=== PATIENT | female | born 1960 | race Caucasian/White ===

== ENCOUNTER 2023-05-30 10:16 | Emergency (ER) | payer OTHER, SELFPAY ==
[2023-05-30 10:26] VITALS: BP 165/98; PULSE 89; RESP 20; TEMP 36.5; BMI 27.4
[2023-05-30 12:11] VITALS: BP 172/100; PULSE 77; O2SAT 98
--- NOTE | 2023-05-30 12:25 | ED.GENADULT ---
HPI - General Adult General Chief complaint: Extremity Pain/Injury, Lower Stated complaint: Bleeding from L leg Time Seen by Provider: 05/30/23 11:07 Source: patient Mode of arrival: ambulatory Limitations: no limitations History of Present Illness HPI narrative: 63-year-old female coming in today with bleeding from the lower extremity. Patient has a history of varicose and spider veins and she was getting a pedicure today when her leg started bleeding. She states that the health sciences department chair was exfoliating her leg with a rough exfoliator. Patient went to the clinic in the clinic sent her to the ER. She is not feeling dizzy or lightheaded. She has no other concerns. Related Data Allergies Allergy/AdvReac Type Severity Reaction Status Date / Time No Known Drug Allergies Allergy Verified 05/30/23 10:33 Review of Systems Status of ROS: Reports: 6 or more systems reviewed and unremarkable except as noted in History and below [facility] Medical History GERD (gastroesophageal reflux disease) ?K21.9 - Gastro-esophageal reflux disease without esophagitis (ICD-10) Closed right hand fracture (06/24/20) ?S62.91XA - Unspecified fracture of right wrist and hand, initial encounter for closed fracture (ICD-10) Surgical History S/P right knee arthroscopy (10/25/15) ?Z98.890 - Other specified postprocedural states (ICD-10) Social History Smoking Status: Never smoker How often do you have a drink containing alcohol: 2-3 times a week How many standard drinks containing alcohol do you have on a typical day: 3 or 4 How often do you have six or more drinks on one occasion: Never AUDIT-C Alcohol total score: 4 Non-prescribed substance use: denies use Exam Narrative: Exam Narrative: Well-nourished well-developed patient in no acute distress. Alert and oriented. Answers questions appropriately. Mood and affect are appropriate. Thoughts are goal oriented and rational. No tangential or magical thinking noted. Patient speaks in full sentences without needing to catch her breath. HEENT: Normocephalic atraumatic. Pupils are equally round reactive to light. Extraocular muscles are intact. Conjunctivae are moist without any icterus noted. Moist mucous membranes. She does not appear pale. Extremities: Patient has spider veins varicose veins throughout the lower extremities. She has a pinpoint area of excoriation over a small varicose vein that is no longer bleeding. No other abnormalities noted. She has normal DP and PT pulses. The skin is well-perfused. Const: Vital Signs, click to edit/add: Vital Signs - 24 hr 05/30/23 10:26 05/30/23 12:11 Temperature 97.7 F Pulse Rate [Pulse Oximeter] 89 77 Respiratory Rate 20 Blood Pressure [Le ft Upper Arm] 172/100 H Blood Pressure [Ri ght Upper Arm] 165/98 H Pulse Oximetry 98 Oxygen Delivery Me thod Room Air Room Air Course Vital Signs Vital signs: Initial Vital Signs Temperature 97.7 F 05/30/23 10:26 Temperature Source Temporal Artery Scan 05/30/23 10:26 Pulse Rate 89 05/30/23 10:26 Pulse Rhythm Regular 05/30/23 10:26 Respiratory Rate 20 05/30/23 10:26 Blood Pressure 165/98 H 05/30/23 10:26 Blood Pressure Mean 120 H 05/30/23 10:26 Oxygen Delivery Method Room Air 05/30/23 10:26 Vital Signs Temperature 97.7 F 05/30/23 10:26 Pulse Rate 89 05/30/23 10:26 Respiratory Rate 20 05/30/23 10:26 Blood Pressure 165/98 H 05/30/23 10:26 Oxygen Delivery Method Room Air 05/30/23 10:26 Temperature 97.7 F 05/30/23 10:26 Pulse Rate 77 05/30/23 12:11 Respiratory Rate 20 05/30/23 10:26 Blood Pressure 172/100 H 05/30/23 12:11 Pulse Oximetry 98 05/30/23 12:11 Oxygen Delivery Method Room Air 05/30/23 12:11 Medical Decision Making MDM Narrative Medical decision making narrative: Bleeding varicose vein, hemostasis achieved with pressure while in the waiting room. We will put a small amount of antibiotic ointment over the area and apply a pressure dressing. Patient encouraged to change and reapply the same the dressing daily until a nice scab forms at which time she can leave the dressing off. Return for any concerns. We discussed signs symptoms of infections. Patient had no other questions. Discharge Plan Discharge Clinical Impression: Bleeding from varicose vein Patient Disposition: Home, Self-Care Condition: Stable Additional Instructions: Change the dressing daily. Wear a snug dressing when you are working. Elevate your legs when you can. Watch for signs of infection which include redness or drainage from the small area that was bleeding. If this occurs see your doctor right away or return to the ER. Follow Up/Referrals: Karla Mcelroy DO [Primary Care Provider] - Stand Alone Forms: [employer] Info Instructions
--- NOTE | 2023-05-30 12:30 | ED.NURSE ---
Bacitracin applied to wound on pt L cartagena. Wound bandaged with telfa, gauze roll, and coban.
== END 2023-05-30 12:43 | disposition home or self-care (01) ==
PROVIDERS: Emergency Provider Family Medicine; PCP Family Medicine
DX: I83.893 Varicose veins of bilateral lower extremities with other complications (principal)
CPT/HCPCS: 99282; 99283

== ENCOUNTER 2024-07-14 07:38 | Emergency (ER) | payer OTHER, SELFPAY ==
[2024-07-14 07:51] VITALS: BP 200/124; PULSE 100; RESP 18; TEMP 37.6; O2SAT 95; BMI 28.2
--- NOTE | 2024-07-14 08:04 | ED_ITS ---
HPI - Extremity Injury (Lower) General Time Seen by Provider: 08:04 Date Seen: 07/14/24 Chief Complaint: Extremity Pain/Injury, Lower Stated Complaint: LT leg vein rupture Time Seen by Provider: 07/14/24 08:04 Source: patient, RN notes reviewed and old records reviewed Mode of arrival: ambulatory Limitations: no limitations History of Present Illness HPI Narrative: Noemy is a very pleasant 64-year-old female with a history of varicose veins, right knee pain, ibuprofen use who comes to the emergency room for bleeding from her left leg. Patient notes that she was at work at [employer] and bumped into something and then felt something wet on her lower leg. She noted that it was blood and that the back of her pants were soaked. She was not quite sure where she was bleeding from but came right to the emergency room. She is on ibuprofen but does not take aspirin or any anticoagulants. The bleeding has now stopped. A similar instance was noted in May in her chart. Patient notes that she has had right knee pain and since that time has gained approximately 15 lb. Also notes that she is taking 400 mg of ibuprofen 3 to 4 times a day. Does not feel that she is swollen or retaining fluid. Denies chest pain headache visual symptoms or confusion. Has noted that her blood pressure is elevated since the knee injury. Related Data Home Medications ?Medication ?Instructions ?Recorded ?Confirmed Advil 07/14/24 Prilosec 07/14/24 Allergies Allergy/AdvReac Type Severity Reaction Status Date / Time No Known Drug Allergies Allergy Verified 05/30/23 10:33 Review of Systems Status of ROS: Reports: 6 or more systems reviewed and unremarkable except as noted in History and below Const: Denies: fever or chills Eyes: Denies: change in vision, blurry vision or seeing flashes ENMT: Denies: neck pain Cardio: Denies: chest pain, palpitations, swelling of feet/ankles or shortness of breath with exertion Resp: Denies: shortness of breath GI: Denies: nausea Musculo: Denies: neck pain Neuro: Denies: headache PFSH PFSH Medical History GERD (gastroesophageal reflux disease) ?K21.9 - Gastro-esophageal reflux disease without esophagitis (ICD-10) Closed right hand fracture (06/24/20) ?S62.91XA - Unspecified fracture of right wrist and hand, initial encounter for closed fracture (ICD-10) Surgical History S/P right knee arthroscopy (10/25/15) ?Z98.890 - Other specified postprocedural states (ICD-10) Social History Smoking Status: Never smoker Do you use any of these nicotine containing products: None How often do you have a drink containing alcohol: 2-3 times a week How many standard drinks containing alcohol do you have on a typical day: 3 or 4 How often do you have six or more drinks on one occasion: Never AUDIT-C Alcohol total score: 4 Non-prescribed substance use: denies use Exam Narrative: Exam Narrative: Noemy is a very pleasant woman in no acute distress. Moderately anxious. External ears eyes nose clear. EOM is full. Patient mentating normally. Heart with a regular rate and rhythm. No murmur rub. Lungs are clear to auscultation. Examination of the lower extremity shows a 2 mm in diameter scab over the back of her left calf. From here there is dried blood along her leg. This appears to be the focus of initial bleeding. Hemostatic at this time. Patient has multiple varicosities spider varicosities on her leg and ankle. Const: Vital Signs, click to edit/add: Vital Signs - 24 hr 07/14/24 07:51 07/14/24 09:00 Temperature 99.7 F H Pulse Rate [Pulse Oximeter] 100 Respiratory Rate 18 Blood Pressure [Ri ght Upper Arm] 200/124 H 177/106 H Pulse Oximetry 95 Oxygen Delivery Me thod Room Air Documenting provider has reviewed patient's vital signs: yes Course Course ED Course: At this time patient's wound is hemostatic. I would apply dressing and a Bhavin wrap for support. Patient does have elevated blood pressure but upon her presentation her heart rate was in the 100s and she was very anxious. Will have patient relax here for did in continue to monitor. No red flag symptoms. Vital Signs Vital signs: Initial Vital Signs Temperature 99.7 F H 07/14/24 07:51 Temperature Source Temporal Artery Scan 07/14/24 07:51 Pulse Rate 100 09/24/24 07:51 Respiratory Rate 18 07/14/24 07:51 Blood Pressure 200/124 H 07/14/24 07:51 Blood Pressure Mean 149 H 07/14/24 07:51 Blood Pressure Position Sitting 07/14/24 07:51 Pulse Oximetry 95 07/14/24 07:51 Oxygen Delivery Method Room Air 07/14/24 07:51 Vital Signs Temperature 99.7 F H 07/14/24 07:51 Pulse Rate 100 07/14/24 07:51 Respiratory Rate 18 07/14/24 07:51 Blood Pressure 200/124 H 07/14/24 07:51 Pulse Oximetry 95 07/14/24 07:51 Oxygen Delivery Method Room Air 07/14/24 07:51 Temperature 99.7 F H 07/14/24 07:51 Pulse Rate 100 07/14/24 07:51 Respiratory Rate 18 07/14/24 07:51 Blood Pressure 177/106 H 07/14/24 09:00 Pulse Oximetry 95 07/14/24 07:51 Oxygen Delivery Method Room Air 07/14/24 07:51 MDM - Extremity Injury (Lower) MDM Narrative Medical decision making narrative: 1. Varicosity bleeding-bleeding is hemostatic at this time. While ibuprofen can be an anti-platelet I think this has more to do with the spider varicosities and fragile skin. At this time we have wrapped it with an Bhavin wrap. Will have patient off work for the next 2 days and elevate the leg so that this does not rebleed. Eventually she may need to see specialist in regards to potential cautery of these veins. 2. Hypertension-patient is asymptomatic at this time. We did have her stay and she was improved although blood pressure remained high at 170 over 106 . She has an appointment tomorrow for evaluation regarding right knee surgery. I did state that Orthopedics is unlikely to do surgery with a persistent elevated blood pressure even though she has no symptoms. I strongly recommend follow-up with her primary MD at [facility] for evaluation and blood pressure control. Also have her decrease the amount of ibuprofen she is using in a day and try to use Tylenol instead. She is agreeable to that. 3. Disposition-return to the ER for worsening symptoms. Medical Records Attestation: I reviewed the patient's medical records. Discharge Plan Discharge Clinical Impression: Bleeding from varicose vein, Hypertension Patient Disposition: Home, Self-Care Condition: Improved Additional Instructions: Substitute acetaminophen for ibuprofen doses if possible. You will need to follow-up with your primary MD for evaluation and treatment of elevated blood pressure before your surgery. You may leave this wound open to air when you are sitting a relaxing with your leg elevated. If you are working I would suggest wearing support stockings or you may wrap this wound with the Bhavin wrap until it is healed. In the future you may wish to talk to a vascular surgeon about cautery or treatment of your varicose veins Return to the emergency room as needed. Prescriptions: No Action Prilosec Advil Follow Up/Referrals: Karla Mcelroy DO [Primary Care Provider] - Stand Alone Forms: [employer] Info Instructions
--- OUTSIDE RECORDS SUMMARY | 2024-07-14 08:32 | XMS_ITS | Clinical Summary ---
Author Organization [facility] Address [place], [place] [address] Care Team Providers Care Puppy Trainer Name Role Phone Karla Mcelroy DO Primary Care Provider Allergies No known active allergies Medications Medication Sig Dispensed Refills Start Date End Date Status omega-3 fatty acids-vitamin E (FISH OIL) 1,000 mg cap Take 1 capsule by mouth 2 times daily. 0 09/19/2016 Active docusate (COLACE) 100 mg capsule Take 1 capsule by mouth 2 times daily. 0 09/20/2017 Active multivitamin (MVI) tablet Women's Day multi - no iron. 0 10/27/2018 Active cholecalciferol (VITAMIN D) 1,000 unit capsule Take 1 capsule by mouth once daily. 0 10/27/2018 Active omeprazole (PRILOSEC) 20 mg Delayed-Release capsuleIndications:Myles ritis and gastroduodenitis Take 1 capsule by mouth once daily before a meal. 90 capsule 3 10/27/2018 Active cyanocobalamin (VITAMIN B-12) 1,000 mcg tablet Take 1 tablet by mouth once daily. ODT 90 tablet 3 11/16/2020 Active Active Problems Problem Noted Date Diagnosed Date Colon polyp 05/09/2012 Overview (05/09/2012): Colonoscopy 04/2012 polyp repeat in 5 years Unspecified constipation 03/10/2012 Back pain 09/29/2011 Asymptomatic varicose veins 02/26/2011 Unspecified gastritis and ga stroduodenitis without mention of hemorrhage 02/11/2009 Overview (02/11/2009): On prilosec Resolved Problems Problem Noted Date Diagnosed Date Resolved Date Fx metatarsal 06/15/2013 06/18/2014 Immunizations Name Administration Dates Next Due Influenza A (H1N1), Inactivated 10/28/2009 Influenza, IIV3 (Age >=3 years) 07/16/2011,07/24,10/01/2003 Influenza, IIV4 08/21/2018, 7,09/19/2016,2012 Influenza, IIV4 (=>6mos) MDV 07/08/2020,08/19/20 19 Influenza, Injectable, Mdck, Quadrivalent, W/preservative 08/28/2022,07/19/2021 Influenza,LAIV4 Live Intrana levi (Flumist) 07/30/2018 Td (Age >=7 Years) 04/24/2023,03/24/2003 Tdap 02/11/2009 Family History Medical History Relation Name Comments Cancer-prostate Father Diabetes Father Heart Disease Father Hypertension Father Other Father prostate cancer Arthritis Mother Diabetes Mother Heart Disease Mother Hypertension Mother Cancer-colon Sister Cancer-breast No Family History Relation Name Status Comments Father (Age 79) prostate c ancer Mother (Age 81) heart ghulam ck Sister Social History Tobacco Use Types Packs/Day Years Used Date Smoking Tobacco: Passive Smo ke Exposure - Never Smoker Cigarettes Smokeless Tobacco: Never Tobacco Cessation:Counseling Given: Yes Comments:only [facility] Alcohol Use Standard Drinks/Week Comments Yes 12 (1 standard drink = 0.6 oz pu re alcohol) OCC. PHQ-2 Answer Date Recorded PHQ-2 TOTAL SCORE 0 03/25/2023 Social Connections Answer Date Recorded Frequency of Communication with Friends and Fami ly Not on file 03/25/2023 Financial Resource Strain Answer Date R ecorded Difficulty of Paying Living Expenses Not on file 10/17/2021 Difficulty of Paying Living Expenses Not on file 10/17/2021 Sex and Gender Information Value Date Recorded Sex Assigned at Not on file Gender Identity Not on file Sexual Orientation Not on file Obstetrics History Para Term AB IAB SAB Ectopic Multiple Livin g Live Births 5 0 0 0 5 5 0 0 0 0 Date Outcome GA Total Labor Labor/2nd/3rd Weight Sex Type Anes PTL Dorota A1 A5 Name Clin IAB IAB IAB IAB IAB Last Filed Vital Signs Vital Sign Reading Time Taken Comments Blood Pressure 195/95 03/09/2024 3:51 PM CDT Pulse 85 03/09/2024 3:51 PM CDT Temperature 36.8 ??C (98.3 ??F) 11/16/2020 8:44 AM CS T Respiratory Rate 16 03/25/2023 2:52 PM CDT Oxygen Saturation 98% 03/09/2024 3:51 PM CDT Inhaled Oxygen Concentration - - Weight 82.1 kg (181 lb) 03/09/2024 3:51 PM CDT Height 170.2 cm (5' 7) 03/25/2023 2:52 PM CDT Body Mass Index 28.35 03/25/2023 2:52 PM CDT Plan of Treatment Health Maintenance Due Date Last Done Comments HIV for age 15-65 02/13/1975 Zoster (shingles) series for age 50+ (1 of 2) 02/13/2010 Colonoscopy through age 75 05/06/2017 05/06/2012 Mammogram for age 45-75 11/16/2021 11/16/19 21, 10/27/2018, 09/20/2017, Additional history exists BMI (ht and wt on same day) for age 18+ 03/25/2024 03/25/2023, 11/16/2020, 10/27/2018, Additional history exists Depression screening for age 12+ 03/25/2024 03/25/2023, 11/16/2020, 11/16/2020, Additional history exists COVID-19 vaccine series (2023- season) 2024 08/21/2023, 08/28/2022, 10/03/2021, Additional history exists Influenza for age 50-64 06/21/2024 08/28/20 22, 07/19/2021, 07/08/2020, Additional history exists Lipids for age 45-75 11/16/2025 11/16/2020, 10/27/2018, 09/20/2017, Additional history exists Tetanus booster 04/24/2033 04/24/2023, 01/20, 03/24/2003 Tdap Completed 02/11/2009 Hepatitis C screening for age 18-79 Completed 06/18/2014 Pneumococcal series for age 6-64 Aged Out No longer eligible based on patient's age to complete this topic Procedures Procedure Name Priority Date/Time Associated Diagnosis Comments XR MAMMO BILAT SCREENING Routine 11/16/2020 10:12 AM LUNCHROOM MONITOR Visit for screening mammogram LIPID PANEL W REFLEX MEASURED LDL Routine 11/16/2020 10:02 AM LUNCHROOM MONITOR Lipid screening ANTI HCV Routine 06/18/2014 9:31 AM CDT Need for hepatitis C screening test from Last 3 Months or Most Recently Relevant to Health Maintenance Results * XR MAMMO BILAT SCREENING (11/16/2020 10:12 AM LUNCHROOM MONITOR) Anatomical Region Laterality Modality BREASTS, Breast Left, Breast Right Bilateral Mammography Impressions 11/16/2020 1:54 PM LUNCHROOM MONITOR ??There is no radiographic evidence for malignancy. ??Recommend annual mammograms. A lay language report of this examination will be provided to the patient. MAMMOGRAM ASSESSMENT: ??ACR 2 Benign Narrative 11/16/2020 1:54 PM LUNCHROOM MONITOR XR MAMMO BILAT SCREENING [[id number]] CLINICAL HISTORY: ??This is an asymptomatic 60 y.o. patient. INDICATION FOR EXAM: Mammogram Screening. TECHNIQUE: CC & MLO views were obtained. ??This digital study was evaluated with the assistance of Computer-Aided Detection. COMPARISON FILMS: Yes 10/27/18 [facility] 09/20/17 [facility] FINDINGS: ??The breasts are heterogeneously dense, which may obscure small masses. ??No suspicious masses or microcalcifications. ??Benign appearing calcifications within left breast and Intramammary lymph node within right breast. Karla Mcelroy DO MAMMO * (ABNORMAL) LIPID PANEL W REFLEX MEASURED LDL (11/16/2020 10:02 AM LUNCHROOM MONITOR) CHOLESTEROL,TOTAL 218(H) 100 - 199 mg/dL 11/16/2020 6:48 PM LUNCHROOM MONITOR [facility] TRIGLYCERIDES 69 <150 mg/dL 11/16/2020 6:48 PM LUNCHROOM MONITOR [facility] HDL CHOLESTEROL 64 >40 mg/dL 6:48 PM LUNCHROOM MONITOR [facility] NON-HDL CHOLESTEROL 154(H) <145 mg/dl 11/16/2020 6:48 PM LUNCHROOM MONITOR [facility] CHOL/HDL RATIO 3.41 <4.50 11/16/2020 6:48 PM LUNCHROOM MONITOR [facility] LDL CHOLESTEROL 140(H) <=130 mg/dL 11/16/2020 6:48 PM LUNCHROOM MONITOR [facility] PROVIDER ORDERED STATUS RANDOM 11/16/2020 6:48 PM LUNCHROOM MONITOR [facility] Blood BLOOD SPECIMEN / Unknown Venipuncture / Unknown 11/16/2020 10:02 AM LUNCHROOM MONITOR 11/16/2020 10:02 AM LUNCHROOM MONITOR Karla Mcelroy DO CHEMISTRY [facility] [address] [place] [address], [place] * ANTI HCV [[id number]] (06/18/2014 9:31 AM CDT) HEPATITIS C ANTIBODY Non-Reacti ve Non-Reacti ve 06/18/2014 5:19 PM CDT [facility] Blood specimen (specimen) BLOOD SPECIMEN / Unknown Venipuncture / Unknown 06/18/2014 9:31 AM CDT 06/18/2014 9:31 AM CDT Narrative [facility] - 06/18/2014 5:19 PM CDT Antibodies to HCV not detected; does not exclude the possibility of exposure to HCV. Melodie Alegre SEND OUTS [facility] [address] [place] [address], [place] from Last 3 Months or Most Recently Relevant to Health Maintenance Care Teams Puppy Trainer Relationship Specialty Start Date End Date Karla Mcelroy DO [address] [place] [id number] PCP - General Family Practice 09/21/15
[2024-07-14 09:00] VITALS: BP 177/106
== END 2024-07-14 09:05 | disposition home or self-care (01) ==
PROVIDERS: Emergency Provider Family Medicine; PCP Family Medicine
DX: I83.892 Varicose veins of left lower extremity with other complications (principal); I10 Essential (primary) hypertension
CPT/HCPCS: 99282; 99283

== ENCOUNTER 2024-09-22 06:37 | Day surgery (SDC) | payer OTHER, SELFPAY ==
[2024-09-22] VITALS (16 sets, daily range): BP systolic 103–170; BP diastolic 53–118; PULSE 71–96; RESP 14–16; TEMP 36.3–37.1; O2SAT 93–100; BMI 30.4
--- OUTSIDE RECORDS SUMMARY | 2024-09-22 06:41 | XMS_ITS | Clinical Summary ---
Author Organization [facility] Address [place], [place] [address] Care Team Providers Care Ocean Export Coordinator Name Role Phone Karla Mcelroy DO Primary [...] daily. ODT 90 tablet 3 11/16/2020 Active lisinopriL (PRINIVIL; ZESTRIL) 10 mg tabletIndications:HTN (hypertension) Take 1 Tablet (10 mg) by mouth once daily. 90 Tablet 3 08/19/2024 Active Active Problems Problem Noted Date Diagnosed Date Colon polyp 05/09/2012 Overview (05/09/2012): Colonoscopy 04/2012 polyp repeat in 5 years Unspecified constipation 03/10/2012 Back pain 09/29/2011 Asymptomatic varicose veins 02/26/2011 Unspecified gastritis and ga stroduodenitis without mention of hemorrhage 02/11/2009 Overview (02/11/2009): On prilosec Resolved Problems Problem Noted Date Diagnosed Date Resolved Date Fx metatarsal 06/15/2013 06/18/2014 Encounters Date Type Department Care Team Description 09/14/2024 Orders Only [address] [address] Karla Mcelroy DO 1 scan: (1-Ord) NFLD-EKG-09/09/24 09/09/2024 9:50 AM MACHINE ENGINEER Office Visit [address] [address] Karla Mcelroy DO Preoperative Exam (total right knee 09/22/24) 09/09/2024 Travel 09/03/[address] [address] Karla Mcelroy DO Letter 08/20/[address] [address] Karla Mcelroy DO Results 08/19/2024 3:05 PM CDT Office Visit [address] [address] Karla Mcelroy DO Blood Pressure; Varicose Veins (left leg- follow up on vein rupture ) 08/19/2024 Travel 08/18/[address] [address] Karla Mcelroy DO Appointment Request (Change 08/19/24 appointment time- needs appt after 3pm) 07/21/[address] [address] Karla Mcelroy DO Appointment Request ([facility] ) from Last 3 Months Immunizations Name Administration Dates Next Due Influenza A (H1N1), Inactivated 10/28/2009 Influenza, IIV3 (Age >=3 years) 07/16/2011,07/24,10/01/2003 Influenza, IIV4 08/21/2018, 7,09/19/2016,2012 Influenza, IIV4 (=>6mos) MDV 07/08/2020,08/19/20 19 Influenza, Injectable, Mdck, Quadrivalent, W/preservative 08/21/2023,08/28/2022,07/19/2021 Influenza,LAIV4 Live Intrana levi (Flumist) 07/30/2018 Td [...] 0 03/25/2023 Social Connections Answer Date Recorded Do you often feel lonely or isolated from those around you? 0 08/19/2024 Financial Resource Strain Answer Date R ecorded Difficulty of Paying Living Expenses 3 08/19/2024 Difficulty of Paying Living Expenses Not on file 08/19/2024 Food Insecurity Answer Date Recorded Do you worry your food will run out before you are able to buy more? 1 08/19/2024 Transportation Needs Answer Date Record ed Does lack of transportation keep you from medica l appointments? 1 08/19/2024 Does lack of transportation keep you from work, meetings or getting things that you need? 1 08/19/2024 Housing Stability Answer Date Recorded What is your housing situation today? 1 08/19/2024 Sex and Gender Information Value Date Recorded [...] Sign Reading Time Taken Comments Blood Pressure 169/98 09/09/2024 9:52 AM MACHINE ENGINEER Pulse 72 09/09/2024 9:52 AM MACHINE ENGINEER Temperature 36.5 C (97.7 F) 09/09/2024 9:52 AM MACHINE ENGINEER Respiratory Rate 16 03/25/2023 2:52 PM CDT Oxygen Saturation 100% 09/09/2024 9:52 AM MACHINE ENGINEER Inhaled Oxygen Concentration - - Weight 83.1 kg (183 lb 3.2 oz) 09/09/2024 9:52 A M MACHINE ENGINEER Height 165.5 cm (5' 5.16) 09/09/2024 9:52 AM CS T Body Mass Index 30.34 09/09/2024 9:52 AM MACHINE ENGINEER Plan of Treatment Health Maintenance Due Date Last Done Comments HIV for age 15-65 02/13/1975 Zoster (shingles) series for age 50+ (1 of 2) 02/13/2010 Colonoscopy through age 75 05/06/2017 05/06/2012 Mammogram for age 45-75 11/16/2021 11/16/19 21, 10/27/2018, 09/20/2017, Additional history exists Depression screening for age 12+ 03/25/2024 03/25/2023, 11/16/2020, 11/16/2020, Additional history exists COVID-19 vaccine series ( season) 2024 08/21/2023, 08/28/2022, 10/03/2021, Additional history exists Influenza for age 50-64 06/21/2024 08/21/20 23, 08/28/2022, 07/19/2021, Additional history exists BMI (ht and wt on same day) for age 18+ 09/09/2025 09/09/2024, 03/25/2023, 11/16/2020, Additional history exists Lipids for age 45-75 11/16/2025 11/16/2020, 10/27/2018, 09/20/2017, Additional history exists Tetanus booster 04/24/2033 04/24/2023, 01/20, 03/24/2003 Tdap Completed 02/11/2009 Hepatitis C screening for age 18-79 Completed 06/18/2014 Pneumococcal series for age 6-64 Aged Out No longer eligible based on patient's age to complete this topic Procedures Procedure Name Priority Date/Time Associated Diagnosis Comments EKG 12 LEAD Routine 09/14/2024 8:34 AM MACHINE ENGINEER Pre-op exam DC READING EKG - NO CHARGE, COMP ONLY Routine 09/14/2024 8:33 AM MACHINE ENGINEER Pre-op exam CBC WITH AUTO DIFFERENTIAL Routine 09/09/2024 10:58 AM MACHINE ENGINEER Pre-op exam UA W/ SEDIMENT EXAM REFLEXED PER CRITERIA Routine 09/09/2024 10:58 AM MACHINE ENGINEER Pre-op exam BASIC METABOLIC PANEL Routine 08/19/2024 4:08 PM CDT HTN (hypertension) XR MAMMO BILAT SCREENING Routine 11/16/2020 10:12 AM MACHINE ENGINEER Visit for screening mammogram LIPID PANEL W REFLEX MEASURED LDL Routine 11/16/2020 10:02 AM MACHINE ENGINEER Lipid screening ANTI HCV Routine 06/18/2014 9:31 AM CDT Need for hepatitis C screening test from Last 3 Months or Most Recently Relevant to Health Maintenance Results * EKG 12 LEAD (09/14/2024 8:34 AM MACHINE ENGINEER) Karla Christina Detert DO EKG ORD * DC READING EKG - NO CHARGE, COMP ONLY (09/14/2024 8:33 AM MACHINE ENGINEER) Karla Christina Detert DO PB - PROVIDER READI NGS * UA W/ SEDIMENT EXAM REFLEXED PER CRITERIA (09/09/2024 10:58 AM MACHINE ENGINEER) COLOR YELLOW YELLOW [facility] APPEARANCE CLEAR CLEAR [facility] SPECIFIC GRAVITY 1.007 1.001 - 1.035 [facility] PH 6.0 5.0 - 8.0 [facility] GLUCOSE NEGATIVE NEGATIVE [facility] BILIRUBIN NEGATIVE NEGATIVE [facility] KETONES NEGATIVE NEGATIVE [facility] OCCULT BLOOD NEGATIVE NEGATIVE [facility] PROTEIN NEGATIVE NEGATIVE [facility] NITRITE NEGATIVE NEGATIVE [facility] LEUKOCYTE ESTERASE NEGATIVE NEGATIVE [facility] Urine URINE SPECIMEN / Unknown 09/09/2024 10:58 AM MACHINE ENGINEER 09/09/2024 10:58 AM MACHINE ENGINEER Karla Mcelroy DO URINE [facility] [address] [place] [address], [facility] [address] [place] [address] * (ABNORMAL) CBC AND DIFFERENTIAL (09/09/2024 10:58 AM MACHINE ENGINEER) Pathologist [facility] WHITE BLOOD CELL COUNT 5.3 3.8 - 10.8 Thousand/u L [facility] RED BLOOD CELL COUNT 4.14 3.80 - 5.10 Million/uL [facility] HEMOGLOBIN 13.9 11.7 - 15.5 g/dL [facility] HEMATOCRIT 41.2 35.0 - 45.0 % [facility] MCV 99.5 80.0 - 100.0 fL [facility] MCH 33.6(H) 27.0 - 33.0 pg [facility] MCHC 33.7 32.0 - 36.0 g/dL [facility] Comment: For adults, a slight decrease in the calculated MCHC value (in the range of 30 to 32 g/dL) is most likely not clinically significant; however, it should be interpreted with caution in correlation with other red cell parameters and the patient's clinical condition. RDW 12.3 11.0 - 15.0 % [facility] PLATELET COUNT 308 140 - 400 Thousand/u L [facility] MPV 9.8 7.5 - 12.5 fL [facility] ABSOLUTE NEUTROPHILS 2,671 1,500 - 7,800 cells/uL [facility] ABSOLUTE LYMPHOCYTES 2,062 850 - 3,900 cells/uL [facility] ABSOLUTE MONOCYTES 461 200 - 950 cells/uL [facility] ABSOLUTE EOSINOPHILS 58 15 - 500 cells/uL [facility] ABSOLUTE BASOPHILS 48 0 - 200 cells/uL [facility] NEUTROPHILS 50.4 % [facility] LYMPHOCYTES 38.9 % [facility] MONOCYTES 8.7 % [facility] EOSINOPHILS 1.1 % [facility] BASOPHILS 0.9 % [facility] Blood BLOOD SPECIMEN / Unknown 09/09/2024 10:58 AM MACHINE ENGINEER 09/09/2024 10:58 AM MACHINE ENGINEER Karla Mcelroy DO HEMATOLOGY [employer] [facility] [address] [place] [address], [facility] [address] [place] [address] * BASIC METABOLIC PANEL (08/19/2024 4:08 PM CDT) [facility] GLUCOSE 94 65 - 99 mg/dL [facility] Comment: Fasting reference interval UREA NITROGEN (BUN) 15 7 - 25 mg/dL [facility] CREATININE 0.72 0.50 - 1.05 mg/dL [facility] EGFR 93 > OR = 60 mL/min/1. 73m2 [facility] BUN/CREATININE RATIO SEE NOTE: 6 - (calc) [facility] Comment: Not Reported: BUN and Creatinine are within reference range. SODIUM 138 135 - 146 mmol/L [facility] POTASSIUM 4.1 3.5 - 5.3 mmol/L [facility] CHLORIDE 101 98 - 110 mmol/L [facility] CARBON DIOXIDE 26 20 - 32 mmol/L [facility] ELECTROLYTE BALANCE 11 7 - 17 mmol/L (calc) [facility] CALCIUM 9.6 8.6 - 10.4 mg/dL [facility] Blood BLOOD SPECIMEN / Unknown 08/19/2024 4:08 PM CDT 08/19/2024 4:08 PM CDT Karla Teaguet DO CHEMISTRY [employer] [facility] [address] [place] [address], [facility] [address] [place] [address] * XR MAMMO BILAT SCREENING (11/16/2020 10:12 AM MACHINE ENGINEER) Anatomical Region Laterality Modality BREASTS, Breast Left, Breast Right Bilateral Mammography Impressions 11/16/2020 1:54 PM MACHINE ENGINEER There is no radiographic evidence for malignancy. Recommend annual mammograms. A lay language report of this examination will be provided to the patient. MAMMOGRAM ASSESSMENT: ACR 2 Benign Narrative 11/16/2020 1:54 PM MACHINE ENGINEER XR MAMMO BILAT SCREENING [[id number]] CLINICAL HISTORY: This is an asymptomatic 60 y.o. patient. INDICATION FOR EXAM: Mammogram Screening. TECHNIQUE: CC & MLO views were obtained. This digital study was evaluated with the assistance of Computer-Aided Detection. COMPARISON FILMS: Yes 10/27/18 [facility] 09/20/17 [facility] FINDINGS: The breasts are heterogeneously dense, which may obscure small masses. No suspicious masses or microcalcifications. Benign appearing calcifications within left breast and Intramammary lymph node within right breast. Karla Vasquez Detert DO MAMMO * (ABNORMAL) LIPID PANEL W REFLEX MEASURED LDL (11/16/2020 10:02 AM MACHINE ENGINEER) CHOLESTEROL,TOTAL 218(H) 100 - 199 mg/dL 11/16/2020 6:48 PM MACHINE ENGINEER [facility] TRIGLYCERIDES 69 <150 mg/dL 11/16/2020 6:48 PM MACHINE ENGINEER [facility] HDL CHOLESTEROL 64 >40 mg/dL 6:48 PM MACHINE ENGINEER [facility] NON-HDL CHOLESTEROL 154(H) <145 mg/dl 11/16/2020 6:48 PM MACHINE ENGINEER [facility] CHOL/HDL RATIO 3.41 <4.50 11/16/2020 6:48 PM MACHINE ENGINEER [facility] LDL CHOLESTEROL 140(H) <=130 mg/dL 11/16/2020 6:48 PM MACHINE ENGINEER [facility] PROVIDER ORDERED STATUS RANDOM 11/16/2020 6:48 PM MACHINE ENGINEER [facility] Blood BLOOD SPECIMEN / Unknown Venipuncture / Unknown 11/16/2020 10:02 AM MACHINE ENGINEER 11/16/2020 10:02 AM MACHINE ENGINEER Karla Mcelroy DO CHEMISTRY [facility] [address] [place] [address], * ANTI HCV [11831.2] (06/18/2014 9:31 AM CDT) HEPATITIS C ANTIBODY Non-Reacti ve Non-Reacti ve 06/18/2014 5:19 PM CDT [facility] Blood specimen (specimen) BLOOD SPECIMEN / Unknown Venipuncture / Unknown 06/18/2014 9:31 AM CDT 06/18/2014 9:31 AM CDT Narrative [facility] - 06/18/2014 5:19 PM CDT Antibodies to HCV not detected; does not exclude the possibility of exposure to HCV. Melodie Alegre SEND OUTS [facility] [address] [place] [address], from Last 3 Months or Most Recently Relevant to Health Maintenance Care Teams [employer] Coordinator Relationship Specialty Start Date End Date Karla Mcelroy DO [address] [place] [address] PCP - General Family Practice 09/21/15
[2024-09-22] MEDS: OXYCODONE (CR) 10 MG TAB.ER.12H PO (07:20)
[2024-09-22] MEDS: CELECOXIB 200 MG CAPSULE PO (07:20)
[2024-09-22] MEDS: ACETAMINOPHEN 500 MG TABLET 1000 MG PO ×2 (07:20→13:35)
[2024-09-22] MEDS: LACTATED RINGERS 1000 ML 1,000 ML 100 ML IV (07:45)
[2024-09-22] MEDS: SODIUM CHLORIDE 0.9 % (FLUSH) 10 ML SYRINGE IVF (07:45)
--- NOTE | 2024-09-22 08:40 | SUR.PREOP ---
TIME?OUT:?0840 PT/RN/MDA?VERIFICATION?OF?SURGICAL?SITE,?PROCEDURE,?AND?CONSENT OBTAINED?PRIOR?TO?INVASIVE?PROCEDURE.
[2024-09-22] MEDS: fentaNYL 100 MCG/2 ML inj IVP (08:41)
[2024-09-22] MEDS: MIDAZOLAM HCL 1 MG/ML inj IVP (08:41)
[2024-09-22] MEDS: CEFAZOLIN 2 GM INJ IVP (09:12)
[2024-09-22] MEDS: TRANEXAMIC ACID 100 MG/ML INJ 1000 MG IV (09:14)
--- NOTE | 2024-09-22 09:16 | W.ANESCHARGE ---
Anesthesia Charges Start Date/Time Anesthesia Start Date: 09/22/24 Anesthesia Start Time: 08:55 Stop Date/Time Anesthesia Stop Date: 09/22/24 Anesthesia Stop Time: 11:14
--- NOTE | 2024-09-22 09:17 | W.PM.NB ---
Nerve Block Nerve Block Time Seen by Provider: 08:45 Date Seen: 09/22/24 Type of block requested by surgeon for post-operative analgesia: adductor canal Side: right Time out performed: Yes Verification of patient name: Yes Verification of date of : Yes Site marking: site marked Name of person performing procedure: Peña Continuous monitoring Was continuous monitoring of O2 sat, B/P, ethics instructor, recorded every 15 minutes?: Yes Procedure Checklist: sterile prep, needles and gloves Ultrasound guided. Images saved: Yes Medications given in 5ml increments after negative aspiration: Marcaine %: 0.25 mL: 15 Needle gauge: 20 Precedex (mcg): 25 Patient tolerated procedure well: Yes Block Charges Block Charge (with Pro Fee): Femoral Nerve Use of Ultrasound Machine for Block: Yes- US Guidance/pain block
--- NOTE | 2024-09-22 09:17 | W.PM.NB ---
Nerve Block Nerve Block Time Seen by Provider: 08:45 Date Seen: 09/22/24 Type of block requested by surgeon for post-operative analgesia: geniculars Side: right Time out performed: Yes Verification of patient name: Yes Verification of date of : Yes Site marking: site marked Name of person performing procedure: Peña Continuous monitoring Was continuous monitoring of O2 sat, B/P, cardiac rehabilitation program director, recorded every 15 minutes?: Yes Procedure Checklist: sterile prep, needles and gloves Ultrasound guided. Images saved: Yes Medications given in 5ml increments after negative aspiration: Marcaine %: 0.25 mL: 9 Needle gauge: 25 Patient tolerated procedure well: Yes Block Charges Block Charge (with Pro Fee): Genicular Nerve Block
--- NOTE | 2024-09-22 10:45 | PM.ORPRC ---
Procedure Note Date of procedure: 09/22/24 Procedure: PREOPERATIVE DIAGNOSIS: Right knee osteoarthritis POSTOPERATIVE DIAGNOSIS: Right knee osteoarthritis NAME OF OPERATION: Right total knee arthroplasty SURGEON: Felix Kapadia MD COLOR CHECKER ROVING OR YARN: NALLELY Yang ANESTHESIA: Spinal ESTIMATED BLOOD LOSS: 0 mL COMPLICATIONS: None SPECIMENS: None DRAINS: None PREOPERATIVE ANTIBIOTICS: Ancef 2 grams IMPLANTS: 1. J&J Attune revision CRS #6 posterior stabilized femur, 14 mm x 50 mm cemented stem 2. # 5 revision CRS fixed-bearing tibia, 14 mm x 50 mm cemented stem 3. #6 posterior stabilized, 6 mm constrained, fixed-bearing polyethylene 4. 35 patella INDICATIONS: The patient is a 64-year-old with a longstanding history of severe, unrelenting right knee pain and instability secondary to end-stage (grade IV) right knee osteoarthritis. Despite appropriate nonoperative management, including activity modification, anti-inflammatories, [id number]-[id number] pain medication, bracing, physical therapy, and injections they continue to have pain and disability. Operative intervention was offered. The risks, benefits and expected outcomes were discussed in detail. These included but were not limited to: Infection, bleeding, injury to blood vessel or nerve, venous thromboembolism. All questions were answered to their satisfaction. Use of an certified nursing assistant instructor was necessary throughout the case for patient positioning and safety, soft tissue retraction, and closure. A modifier 22 should be added to this case. Given the patient's valgus deformity stemmed and constrained components were used. This added time and cost to complete the case. PROCEDURE: Spinal anesthesia was administered. The patient was placed supine on the operating table. The certified nursing assistant instructor made sure the patient was positioned appropriately. The lower extremity was prepped and draped in the usual sterile fashion. The limb was exsanguinated with the [place] bandage. The pneumatic tourniquet was inflated to 300 mmHg. A standard anterior incision was made with the knee in flexion. Subcutaneous dissection was sharply taken through fascial layer #1. Full-thickness medial and lateral flaps were elevated. The certified nursing assistant instructor retracted the soft tissues and protected them throughout the case. A standard subvastus approach was made. The patella was subluxed. The infrapatellar fat pad was debrided. The menisci and cruciate ligaments were sharply d?brided. Marginal osteophytes were d?brided with the rongeur. The drill was used to penetrate the femoral canal. The canal was aspirated and irrigated with pulse lavage. The intramedullary femoral guide was placed for a 5-degree valgus cut, removing 12 mm off the distal femur. The saw was used to make the cut. Given the amount of valgus malalignment, stemmed and constrained components were planned. Attention was then turned to the proximal tibia. The extramedullary tibial guide was placed for a neutral varus/valgus cut with 7 degrees of posterior slope, removing 2 mm based off the medial tibial surface. The certified nursing assistant instructor protected the collateral ligaments and the neurovascular bundle. The saw was used to make the cut. The dog bone was placed to check our extension gap. We were able to get the knee into full extension. We returned our attention to the femoral prep. Whitesides line and the trans epicondylar axis were marked. The femoral sizing guide was pinned onto the distal femur. Three degrees of external rotation nicely parallels the transepicondylar axis. Pins were placed for posterior referencing. The four-in-one cutting guide was pinned onto the distal femur. The anterior, posterior, and chamfer cuts were made. The certified nursing assistant instructor protected the collateral ligaments. The revision trial was placed. The box cuts were made. The drill was used x2. The stemmed, boxed trial was placed and was an excellent fit. Trial components were placed. The knee was nicely balanced in both flexion and extension. The trial components were removed. The tray was placed in appropriate rotation, parallel to our tibial cutting pins. It was pinned by the certified nursing assistant instructor and the drill x2 was used. The stemmed tibial trial was placed. The punch was used. The tray was removed. The punch was used again. Attention was then turned to the patella. [place] patellar thickness was 20.5 mm. The lobster claw resection guide was used with the 7.5 mm tenzin. The saw was used to make the cut. Drill holes were made by the certified nursing assistant instructor. The trial was placed and was an excellent fit. Cancellous surfaces were irrigated with pulse lavage and thoroughly dried by the certified nursing assistant instructor. We cemented the tibial component, then the femoral component. We impacted the 6 mm polyethylene onto the tibial tray. The knee was brought into full extension. We then cemented the patellar component. Excessive cement was removed. The cement was allowed to harden. The knee was taken through a range of motion and was found to be nicely balanced in both flexion and extension. The patella tracks centrally. The certified nursing assistant instructor did a three minute dilute Betadine solution soak. The certified nursing assistant instructor irrigated the wound with 3 liters of normal saline via pulse lavage. The certified nursing assistant instructor reapproximated the extensor mechanism with #1 Vicryl in an interrupted rbhoyb-ye-irvhq fashion. The certified nursing assistant instructor then ran the extensor mechanism with a #1 PDO Stratafix. The certified nursing assistant instructor closed the subcutaneous tissues with a 3-0 Stratafix and the skin with a running 3-0 Stratafix in a subcuticular fashion. Glue was used to seal the skin. The certified nursing assistant instructor placed a dry dressing. Sponge and needle counts were correct x2. The patient tolerated the procedure well. There were no apparent complications. They were carefully transferred to the hospital bed and taken to the postanesthesia care unit in satisfactory condition. PLAN: The patient will be mobilized with physical therapy. Aspirin will be used for DVT prophylaxis. They will be discharged to home once medically appropriate.
--- NOTE | 2024-09-22 11:15 | CRLHL7_ITS ---
For Patients: As a result of the Cures Act, medical imaging exams and procedure reports are released immediately into your electronic medical record. You may view this report before your referring provider. If you have questions, please contact your health care provider. Indication: Postop total right knee Technique: Two views right knee Findings/Impression: Hardware from a right total knee arthroplasty is in satisfactory position. Bone alignment is normal. No sign of acute fracture. Postop changes are within normal limits. Dictated by Yariel Feliciano MD @ 09/23/2024 8:35:46 AM (Electronically Signed)
--- NOTE | 2024-09-22 11:16 | W.ANESCHARGE ---
Anesthesia Charges Start Date/Time Anesthesia Start Date: 09/22/24 Anesthesia Start Time: 08:55 Stop Date/Time Anesthesia Stop Date: 09/22/24 Anesthesia Stop Time: 11:14
[2024-09-22] MEDS: OXYCODONE 5 MG TABLET PO ×2 (13:05→14:40)
--- NOTE | 2024-09-22 14:03 | SUR.PHASEII ---
Patient to PT at 1400.
--- NOTE | 2024-09-22 16:00 | SUR.PHASEII ---
Patient passed PT and returned to [facility]. Patient attempted to void at 1445 unsuccessfully. Patient drank more pedialyte, water, diet coke, and successfully voided at 1545. Patient verbalized readiness to be discharge and understanding of discharge instructions that she had gone over with first phase II RN.
== END 2024-09-22 16:02 | disposition home or self-care (01) ==
LOC: OR 06:39
PROVIDERS: PCP Family Medicine; Visit Provider Orthopaedic Surgery
PROC: (CPT 27447; principal; 2024-09-22 08:45)
DX: M17.11 Unilateral primary osteoarthritis, right knee (principal); M21.061 Valgus deformity, not elsewhere classified, right knee; G89.18 Other acute postprocedural pain
CPT/HCPCS: 27447; 01402; 64447; 64454; 73560; 76942; 97110; 97116; 97161; 97530; A9270; C1776; J0665; J0690; J2250; J2371; J2405; J2704; J3010; J3490; J7120

== ENCOUNTER 2024-12-02 08:05 | Emergency (ER) | payer BC, SELFPAY ==
[2024-12-02] VITALS (22 sets, daily range): BP systolic 157–200; BP diastolic 87–110; PULSE 72–91; RESP 16–18; TEMP 36.6; O2SAT 92–99; BMI 29.1
--- OUTSIDE RECORDS SUMMARY | 2024-12-02 08:06 | XMS_ITS | Clinical Summary ---
Author Organization [employer] [facility] [employer] Address [place], [place] [address] Care Team Providers Care Direct Sales Consultant Name Role Phone Karla Mcelroy DO Primary Care Provider [phone] Allergies No known active allergies Medications omega-3 fatty acids-vitamin E (FISH OIL) 1,000 mg cap Take 1 capsule by mouth 2 times daily. 0 6 Active docusate (COLACE) 100 mg capsule Take 1 capsule by mouth 2 times daily. 0 7 Active multivitamin (MVI) tablet Women's Day multi - no iron. 0 9 Active cholecalciferol (VITAMIN D) 1,000 unit capsule Take 1 capsule by mouth once daily. 0 9 Active omeprazole (PRILOSEC) 20 mg Delayed-Release capsuleIndications:G astritis and gastroduodenitis Take 1 capsule by mouth once daily before a meal. 90 capsule 3 9 Active cyanocobalamin (VITAMIN B-12) 1,000 mcg tablet Take 1 tablet by mouth once daily. ODT 90 tablet 3 1 Active lisinopriL (PRINIVIL; ZESTRIL) 10 mg tabletIndications:HT N (hypertension) Take 1 Tablet (10 mg) by mouth once daily. 90 Tablet 3 4 Active Active Problems Problem Noted Date Diagnosed [...] Encounters Date Type Department Care Team Description 11/26/2024 2:50 PM COMPLIANCE REVIEWER Office Visit [facility] [address] [place] [address] Soledad Pineda, Headache (headaches ongoing for about 2 weeks, not sleeping well, Tylenol has not been helpful. ) 11/26/2024 Travel 11/26/2024 Nurse Triage [facility] [address] [place] [address] Karla Mcelroy, Headache 11/17/2024 Nurse Triage [facility] [address] [place] [address] Karla Mcelroy DO Headache 11/13/2024 Nurse Triage [facility] [address] [place] [address] Karla Mcelroy, Headache 09/22/2024 Orders Only [facility] Scanner 1 scan: (1-Ord) RUBI CHEN KNEE RT 2V, 09/22/2024 09/14/2024 Orders Only [address] [address] Karla Mcelroy DO 1 scan: (1-Ord) NFLD-EKG-09/09/24 09/09/2024 9:50 AM COMPLIANCE REVIEWER Office Visit [facility] [address] [place] [address] Karla Mcelroy DO Preoperative Exam (total right knee 09/22/24) 09/09/2024 Travel 09/03/2024 Telephone [facility] [address] [place] [address] Karla Mcelroy DO Letter from Last 3 Months Immunizations Name Administration [...] is your housing situation today? 1 08/19/2024 Utilities Answer Date Recorded Do you have trouble paying f or utilities (for example, heat, electricity, water, phone)? 1 08/19/2024 Comments No Sex and Gender Information Value Date Recorded Sex Assigned at Not on file Legal Sex Female 5:24 AM COMPLIANCE REVIEWER Gender Identity Not on file Sexual Orientation Not on file Occupation Industry Job Start Date Job End Date [employer] Not on file Not on file Not on file Obstetrics History Para Term AB IAB SAB Ectopic Multiple Livin g Live Births 5 0 0 0 5 5 0 0 0 0 Date Outcome GA Total Labor Labor/2nd/3rd Weight Sex Type Anes PTL Dorota A1 A5 Name Clin IAB IAB IAB IAB IAB Last Filed Vital Signs Vital Sign Reading Time Taken Comments Blood Pressure 158/98 11/26/2024 2:51 PM COMPLIANCE REVIEWER Pulse 70 11/26/2024 2:51 PM COMPLIANCE REVIEWER Temperature 36.9 C (98.5 F) 11/26/2024 2:51 PM COMPLIANCE REVIEWER Respiratory Rate 16 03/25/2023 2:52 PM CDT Oxygen Saturation 99% 11/26/2024 2:51 PM COMPLIANCE REVIEWER Inhaled Oxygen Concentration - - Weight 83.1 kg (183 lb 3.2 oz) 09/09/2024 9:52 A M COMPLIANCE REVIEWER Height 165.5 cm (5' 5.16) 09/09/2024 9:52 AM CS T Body Mass Index 30.34 09/09/2024 9:52 AM COMPLIANCE REVIEWER Plan of Treatment Health Maintenance Due Date Last Done Comments HIV for age 15-65 02/13/1975 Pneumococcal series for age 50+ (1 of 1 - PCV) 02/13/2010 Zoster (shingles) series for age 50+ (1 of 2) 02/13/2010 Colonoscopy through age 75 05/06/2017 05/06/2012 RSV vaccine for adults or (1 - Risk 60-74 years 1-dose series) 2020 Mammogram for age 45-75 11/16/2021 11/16/19 21, [...] Tdap Completed 02/11/2009 Hepatitis C screening for ag e 18-79 Completed 06/18/2014 Procedures Procedure Name Priority Date/Time Associated Diagnosis Comments SCAN-RADIOLOGY REPORT 09/22/2024 12:00 AM COMPLIANCE REVIEWER EKG 12 LEAD Routine 09/14/2024 8:34 AM COMPLIANCE REVIEWER Pre-op exam MD READING EKG - NO CHARGE, COMP ONLY Routine 09/14/2024 8:33 AM COMPLIANCE REVIEWER Pre-op exam CBC WITH AUTO DIFFERENTIAL Routine 09/09/2024 10:58 AM COMPLIANCE REVIEWER Pre-op exam UA W/ SEDIMENT EXAM REFLEXED PER CRITERIA Routine 09/09/2024 10:58 AM COMPLIANCE REVIEWER Pre-op exam XR MAMMO BILAT SCREENING Routine 11/16/2020 10:12 AM COMPLIANCE REVIEWER Visit for screening mammogram LIPID PANEL W REFLEX MEASURED LDL Routine 11/16/2020 10:02 AM COMPLIANCE REVIEWER Lipid screening ANTI HCV Routine 06/18/2014 9:31 AM CDT Need for hepatitis C screening test from Last 3 Months or Most Recently Relevant to Health Maintenance Results * SCAN-RADIOLOGY REPORT (09/22/2024 12:00 AM COMPLIANCE REVIEWER) Anatomical Region Laterality Modality Other us Scanner OTHER Final Result * EKG 12 LEAD (09/14/2024 8:34 AM COMPLIANCE REVIEWER) us Karla Vasquez Detert DO EKG ORD Final Resul t * MD READING EKG - NO CHARGE, COMP ONLY (09/14/2024 8:33 AM COMPLIANCE REVIEWER) us Karla Vasquez Detert DO PB - PROVIDER READINGS Ana l Result * UA W/ SEDIMENT EXAM REFLEXED PER CRITERIA (09/09/2024 10:58 AM COMPLIANCE REVIEWER) COLOR YELLOW YELLOW [facility] [...] URINE SPECIMEN / Unknown 09/09/2024 10:58 AM COMPLIANCE REVIEWER 09/09/2024 10:58 AM COMPLIANCE REVIEWER us Karla Teaguet DO URINE Final Resul t [facility] [address] [place] [address], [facility] [address] [place] [address] * (ABNORMAL) CBC AND DIFFERENTIAL (09/09/2024 10:58 AM COMPLIANCE REVIEWER) WHITE BLOOD CELL COUNT 5.3 3.8 - [...] BLOOD SPECIMEN / Unknown 09/09/2024 10:58 AM COMPLIANCE REVIEWER 09/09/2024 10:58 AM COMPLIANCE REVIEWER us Karla Teaguet DO HEMATOLOGY Final Resul t [facility] [address] [place] [address], [place] [phone] [facility] [facility] [address] [place] [address] * XR MAMMO BILAT SCREENING (11/16/2020 10:12 AM COMPLIANCE REVIEWER) Anatomical Region Laterality Modality BREASTS, Breast Left, Breast Right Bilateral Mammography Impressions 11/16/2020 1:54 PM COMPLIANCE REVIEWER There is no radiographic evidence for malignancy. Recommend annual mammograms. A lay language report of this examination will be provided to the patient. MAMMOGRAM ASSESSMENT: ACR 2 Benign Narrative 11/16/2020 1:54 PM COMPLIANCE REVIEWER XR MAMMO BILAT SCREENING [[id number]] CLINICAL HISTORY: This is an asymptomatic 60 y.o. patient. INDICATION FOR EXAM: Mammogram Screening. TECHNIQUE: CC & MLO views were obtained. This digital study was evaluated with the assistance of Computer-Aided Detection. COMPARISON FILMS: Yes 10/27/18 [facility] 09/20/17 [facility] FINDINGS: The breasts are heterogeneously dense, which may obscure small masses. No suspicious masses or microcalcifications. Benign appearing calcifications within left breast and Intramammary lymph node within right breast. Karla Vasquez Detert DO MAMMO Final Resul t * (ABNORMAL) LIPID PANEL W REFLEX MEASURED LDL (11/16/2020 10:02 AM COMPLIANCE REVIEWER) CHOLESTEROL,TOTAL 218(H) 100 - 199 mg/dL 11/16/2020 6:48 PM COMPLIANCE REVIEWER [facility] TRIGLYCERIDES 69 <150 mg/dL 11/16/2020 6:48 PM COMPLIANCE REVIEWER [facility] HDL CHOLESTEROL 64 >40 mg/dL 6:48 PM COMPLIANCE REVIEWER [facility] NON-HDL CHOLESTEROL 154(H) <145 mg/dl 11/16/2020 6:48 PM COMPLIANCE REVIEWER [facility] CHOL/HDL RATIO 3.41 <4.50 11/16/2020 6:48 PM [facility] LDL CHOLESTEROL 140(H) <=130 mg/dL 11/16/2020 6:48 PM [facility] PROVIDER ORDERED STATUS RANDOM 11/16/2020 6:48 PM [facility] Blood BLOOD SPECIMEN / Unknown Venipuncture / Unknown 11/16/2020 10:02 AM COMPLIANCE REVIEWER 11/16/2020 10:02 AM COMPLIANCE REVIEWER us Karla Teaguet DO CHEMISTRY Final Resul t [facility] [address] [place] [address], * ANTI HCV [[id number]] (06/18/2014 9:31 AM CDT) HEPATITIS C ANTIBODY Non-Reacti ve Non-Reacti ve 06/18/2014 5:19 PM CDT [facility] Blood specimen (specimen) BLOOD SPECIMEN / Unknown Venipuncture / Unknown 06/18/2014 9:31 AM CDT 06/18/2014 9:31 AM CDT Narrative [facility] - 06/18/2014 5:19 PM CDT Antibodies to HCV not detected; does not exclude the possibility of exposure to HCV. Melodie Alegre SEND OUTS Final R esult [facility] [address] [place] [address], from Last 3 Months or Most Recently Relevant to Health Maintenance Insurance [place] Care Teams Direct Sales Consultant Relationship Specialty Start Date End Date Karla Mcelroy DO [address] [place] [address] PCP - General Family Practice 09/21/15
--- NOTE | 2024-12-02 08:51 | ED.GENADULT ---
HPI - General Adult General Date Seen: 12/02/24 Chief complaint: Hypertension Stated complaint: headache/high BP Time Seen by Provider: 12/02/24 08:44 History of Present Illness HPI narrative: 64 yo F presenting to the ER today with concern for headache and high blood pressure. She has a recent right knee surgery with knee replacement about 8 weeks ago. Per medical record she was in the urgent care on 11/19/2024. At that time she complained of 7 day history of headache. Per urgent care records she was having right trapezius and neck tightness. She was put on Toradol and dexamethasone. Patient reports that after that she actually had a follow-up with her primary clinic at [facility]. She was told that if her headache did go away after 2 days she should come back to the ER. Headaches been going on over a week since then has actually gotten worse to her 3 days ago so today she finally told her that she had come to the ER She reports that she did have a right knee replacement about 8 weeks ago. She had been briefly on aspirin after that but no other anticoagulants. She is not currently taking any aspirin or other blood thinners. She notes that before her knee replacement she had been very active, averaging about 27,000 steps per day. Since the replacement she has been much less active and she feels like that is increasing her anxiety. She notes that she tends to be chronically a ?hyper? person. For the past 2 weeks or so she has had a headache. It is mostly right-sided. It is continuous and never goes away. Sometimes he gets a little bit better. She notes that she had been taking ibuprofen at home but is not helping. She had been given some Toradol by the urgent care and she took it for a couple of days. It helped a little bit for about a day but made her nauseous. It really has not been helping since then. She also notes that she is out of it since she was only given 4 tablets. She think she had a fever of 100.4 about 2 weeks ago but has not really had a fever since then. For about the past week she has had a mild sore throat. No nasal congestion. No cough. No trouble breathing. She has not had a fever this week Her headaches been getting worse the past couple of days. She also has new black spots and floaters in both eyes. They have been going on for about a week. She does not think she is really having blurry vision or any definite visual field cut, just some occasional black spots. Headaches gotten worse the past couple of days so she finally came here to the ER No recent fall. No clear exacerbating or alleviating factors for the headache such as change in position or neck turning. Related Data Home Medications ?Medication ?Instructions ?Recorded ?Confirmed ibuprofen 200 mg tablet (Advil) 400 mg PO Q6-8H PRN 07/15/24 12/02/24 cholecalciferol (vitamin D3) 25 25 mcg PO QDAY 09/14/24 12/02/24 mcg (1,000 unit) capsule lisinopril 10 mg tablet 10 mg PO QDAY 09/14/24 12/02/24 mecobalamin (vitamin B12) 1,000 1,000 mcg PO QDAY 09/14/24 12/02/24 mcg chewable tablet (B12 Active) multivitamin 1 tab PO QDAY 09/14/24 12/02/24 Previous Rx's ?Medication ?Instructions ?Recorded acetaminophen 500 mg capsule 500 - 1,000 mg (1 - 2 x 500 mg) PO 09/22/24 Q6H PRN pain #100 caps sennosides 8.6 mg tablet (Senna 17.2 mg (2 x 8.6 mg) PO BID PRN 09/22/24 Lax) constipation #100 tabs hydrocodone 5 mg-acetaminophen 325 1 tab PO Q6H PRN pain #7 tabs 12/02/24 mg tablet ondansetron 4 mg disintegrating 4 mg PO Q8H PRN nausea and 12/02/24 tablet vomiting #10 tabs Allergies Allergy/AdvReac Type Severity Reaction Status Date / Time No Known Drug Allergies Allergy Verified 12/02/24 10:38 [facility] Medical History (Updated 12/02/24 @ 12:34 by Cesar Rojas MD) Unspecified chronic gastritis without bleeding ?K29.50 - Unspecified chronic gastritis without bleeding (ICD-10) Unspecified constipation ?K59.00 - Constipation, unspecified (ICD-10) Back pain ?M54.9 - Dorsalgia, unspecified (ICD-10) Tear of lateral meniscus of right knee ?S83.281A - Other tear of lateral meniscus, current injury, right knee, initial encounter (ICD-10) Right ACL tear ?S83.511A - Sprain of anterior cruciate ligament of right knee, initial encounter (ICD-10) GERD (gastroesophageal reflux disease) ?K21.9 - Gastro-esophageal reflux disease without esophagitis (ICD-10) Closed right hand fracture (06/24/20) ?S62.91XA - Unspecified fracture of right wrist and hand, initial encounter for closed fracture (ICD-10) Surgical History (Reviewed 11/02/24 @ 09:33 by Shae Lindquist ~ [facility]) History of arthroplasty of right knee (09/22/24) ?Z96.651 - Presence of right artificial knee joint (ICD-10) History of total hysterectomy (05/05/03) ?Z90.710 - Acquired absence of both cervix and uterus (ICD-10) S/P right knee arthroscopy (10/25/15) ?Z98.890 - Other specified postprocedural states (ICD-10) Social History (Reviewed 11/02/24 @ 09:33 by Shae Lindquist ~ [facility]) Smoking Status: Never smoker Do you use any of these nicotine containing products: None Second hand tobacco smoke exposure: Yes ( smokes) How often do you have a drink containing alcohol: 2-3 times a week How many standard drinks containing alcohol do you have on a typical day: 3 or 4 How often do you have six or more drinks on one occasion: Never AUDIT-C Alcohol total score: 4 Non-prescribed substance use: denies use Caffeine: Yes Are you using contraception or practicing any form of control: No service: No Exam Narrative: Exam Narrative: Constitutional: Appears well-developed and well-nourished. Alert. Conversant but Hiro admission she is feeling anxious. Jumps rapidly from concerned concern but is easily redirectable. Very pleasant.. Uncomfortable, but Non toxic. HENT: Head: Atraumatic. No depressed skull fracture, Raccoon Eyes, Echavarria's sign, or hemotympanum. Face normal. TMs normal Nose: Nose normal. Mouth/Throat: Oral mucosa is clear and moist. no trismus. Pharynx mildly erythematous. Tonsils are not enlarged. Tonsils are symmetric. Uvula midline. Eyes: Conjunctivae normal. EOM normal. Pupils equal, round, and reactive to light. No scleral icterus. Neck: Normal range of motion. Neck supple. No tracheal deviation present. No meningismus. Cardiovascular: Normal rate, regular rhythm. No gallop. No friction rub. No murmur heard. Symmetric radial and PT artery pulses Pulmonary/Chest: Effort normal. No stridor. No respiratory distress. No wheezes. No rales. No rhonchi . No tenderness. Abdominal: Soft. Bowel sounds normal. No distension. No mass. No tenderness. No rebound. No guarding. Musculoskeletal: RUE: Normal range of motion. No tenderness. No deformity LUE: Normal range of motion. No tenderness. No deformity RLE: Normal range of motion. No edema. No tenderness. No deformity LLE: Normal range of motion. No edema. No tenderness. No deformity Lymph: No cervical adenopathy. Neurological: Mental status normal. Attention normal. Alert and oriented x3. GCS 15. Memory normal. Speech fluent. Cognition normal. Cranial Nerves intact II-XII except I did not formally test gag or visual acuity. EOMI. Palate elevates symmetrically and tongue protrudes in the midline. Strength: 5/5 trapezius on the right and left 5/5 deltoid on the right and left 5/5 biceps on the right and left 5/5 triceps on the right and left 5/5 quality review trainer on the right and left 5/5 thumb opposition on the right and left 5/5 finger abduction on the right and left 5/5 hip flexors (L3) on the right and left 5/5 quadriceps (L4) on the right and left 5/5 tibialis anterior on the right and left 5/5 EHL (L5) on the right and left 5/5 gastrocnemius (S1) on the right and left 5/5 hamstring on the right and left Sensation intact to light touch in both upper extremities (C4-T1) Sensation intact to light touch in Both lower extremities (L4-S1). coordination normal. Gait steady in the hallway to go to the bathroom Skin: Skin is warm and dry. No rash noted. No pallor. Normal capillary refill. Psychiatric: Normal mood. Normal affect. Const: Vital Signs, click to edit/add: Vital Signs - 24 hr 12/02/24 08:08 12/02/24 08:29 12/02/24 08:30 Temperature 98 F Pulse Rate 74 74 Pulse Rate [Right Pulse Oximeter] 73 Respiratory Rate 18 Blood Pressure Blood Pressure [Ri ght Upper Arm] 200/100 H Pulse Oximetry 99 93 93 Oxygen Delivery Me thod Room Air 12/02/24 08:32 12/02/24 08:33 12/02/24 08:45 Temperature Pulse Rate 72 85 74 Pulse Rate [Right Pulse Oximeter] Respiratory Rate Blood Pressure 168/107 H Blood Pressure [Ri ght Upper Arm] Pulse Oximetry 92 95 96 Oxygen Delivery Me thod 12/02/24 08:47 12/02/24 08:48 12/02/24 09:00 Temperature Pulse Rate 73 72 77 Pulse Rate [Right Pulse Oximeter] Respiratory Rate Blood Pressure 164/108 H Blood Pressure [Ri ght Upper Arm] Pulse Oximetry 95 93 98 Oxygen Delivery Me thod 12/02/24 09:02 12/02/24 09:43 12/02/24 09:45 Temperature Pulse Rate 79 81 86 Pulse Rate [Right Pulse Oximeter] Respiratory Rate Blood Pressure 176/110 H 180/98 H Blood Pressure [Ri ght Upper Arm] Pulse Oximetry 98 99 97 Oxygen Delivery Me thod 12/02/24 09:46 12/02/24 10:00 12/02/24 10:42 Temperature Pulse Rate 85 83 77 Pulse Rate [Right Pulse Oximeter] Respiratory Rate Blood Pressure Blood Pressure [Ri ght Upper Arm] Pulse Oximetry 99 98 97 Oxygen Delivery Me thod 12/02/24 10:44 12/02/24 10:45 12/02/24 10:47 Temperature Pulse Rate 75 74 75 Pulse Rate [Right Pulse Oximeter] Respiratory Rate Blood Pressure 158/87 H 157/89 H Blood Pressure [Ri ght Upper Arm] Pulse Oximetry 96 94 92 Oxygen Delivery Me thod 12/02/24 10:48 12/02/24 11:46 12/02/24 11:47 Temperature Pulse Rate 75 91 88 Pulse Rate [Right Pulse Oximeter] Respiratory Rate Blood Pressure 178/105 H Blood Pressure [Ri ght Upper Arm] Pulse Oximetry 92 96 94 Oxygen Delivery Me thod 12/02/24 11:48 Temperature Pulse Rate Pulse Rate [Right Pulse Oximeter] 86 Respiratory Rate 16 Blood Pressure Blood Pressure [Ri ght Upper Arm] 178/105 H Pulse Oximetry 95 Oxygen Delivery Me od Room Air Course Vital Signs Vital signs: Initial Vital Signs Temperature 98 F 12/02/24 08:08 Temperature Source Temporal Artery Scan 12/02/24 08:08 Pulse Rate 73 12/02/24 08:08 Pulse Rhythm Regular 12/02/24 08:08 Pulse Strength 3+ Normal 12/02/24 08:08 Respiratory Rate 18 12/02/24 08:08 Blood Pressure 200/100 H 12/02/24 08:08 Blood Pressure Mean 133 H 12/02/24 08:08 Blood Pressure Position Sitting 12/02/24 08:08 Pulse Oximetry 99 12/02/24 08:08 Oxygen Delivery Method Room Air 12/02/24 08:08 Vital Signs Temperature 98 F 12/02/24 08:08 Pulse Rate 73 12/02/24 08:08 Respiratory Rate 18 12/02/24 08:08 Blood Pressure 200/100 H 12/02/24 08:08 Pulse Oximetry 99 12/02/24 08:08 Oxygen Delivery Method Room Air 12/02/24 08:08 Temperature 98 F 12/02/24 08:08 Pulse Rate 86 12/02/24 11:48 Respiratory Rate 16 12/02/24 11:48 Blood Pressure 178/105 H 12/02/24 11:48 Pulse Oximetry 95 12/02/24 11:48 Oxygen Delivery Method Room Air 12/02/24 11:48 Medications Administered Medications: Discontinued Medications Generic Name Dose Route Start Last Admin Trade Name Cucoq PRN Reason Stop Dose Admin Hydrocodone Bitart/Acetaminophen 1 tab 12/02/24 11:31 12/02/24 11:45 Hydrocodone-Acetamin 5-325 Mg 1 Tab PO 12/02/24 11:32 1 tab ONCE ONE Administration Diphenhydramine HCl 25 mg 12/02/24 09:10 12/02/24 09:41 Diphenhydramine 50 Mg/Ml Inj IVP 12/02/24 09:11 25 mg ONCE ONE Administration Droperidol 2.5 mg 12/02/24 10:45 12/02/24 10:55 Droperidol 2.5 Mg/Ml Inj IV 12/02/24 10:46 2.5 mg ONCE ONE Administration Sodium Chloride 1,000 mls @ 1,000 mls/hr 12/02/24 09:15 12/02/24 09:36 0.9 % Sodium Chloride 1000 Ml IV 12/02/24 10:14 1,000 mls/hr .Q1H KOKI Administration Ketorolac Tromethamine 15 mg 12/02/24 09:10 12/02/24 09:37 Ketorolac 15 Mg/Ml Inj IVP 12/02/24 09:11 15 mg ONCE ONE Administration Metoclopramide HCl 10 mg 12/02/24 09:10 12/02/24 09:39 Metoclopramide Hcl 5 Mg/Ml Inj IVP 12/02/24 09:11 10 mg ONCE ONE Administration Medical Decision Making MDM Narrative Medical decision making narrative: This patient presents for evaluation of concern for elevated blood pressure and also headache. In terms of her headache. She has had a headache mostly on the right side of her head for the past couple of weeks. It has been persistent. Temporarily improved with meds (like Toradol prescribed urgent care) but not resolved. It was not sudden in onset. That she does not really describe a pattern suggestive of subarachnoid hemorrhage. It is associated some neck pain and stiffness. She has never really had similar headaches before so we did obtain head CT and CT angiogram of her head neck. Head CT is normal. No evidence for intracranial hemorrhage, mass, S hydrocephalus, or midline shift. No evidence for cerebral edema. CT angio ever had neck is obtained to look for possible cervical artery dissection. Overall presentation is not really suggestive for aneurysmal subarachnoid hemorrhage. CTA[] Patient thinks her headache might be related to COVID because she thinks she had COVID a week or 2 ago. PCR obtained today is negative for COVID, influenza, RSV. She is not febrile here in the ER says she has not really had a fever now for a couple of weeks.. White count is slightly low at 3.8, which might correlate with a viral syndrome She also has elevated blood pressure readings. She was worried that her high blood pressure my trigger stroke. She is not having any focal deficits. I wonder for elevated blood pressure might actually be physiologic response to her headache. She does have a history of hypertension in the past, and is supposed to be on lisinopril but stopped taking it a few days ago because of the headache and nausea. No concerning symptoms of chest pain , severe headache, neurologic deficits. The workup here is negative and the patient does not have any clinical, laboratory, ecg or historical signs of end-organ dysfunction. Because of the associated headache we did do a head CT and it is normal. There is no signs of hypertensive emergency or urgency. Supportive outpatient management for her blood pressure is therefore indicated with close follow-up of primary care physician. I counseled that she should restart taking her lisinopril and monitor blood pressure with daily measurements and follow-up with PCP within the next 2-4 days. She also endorses feeling very anxious. Clearly there is an under pinning of anxiety underneath her symptoms but overall she is very polite. She is not so anxious that she is a danger to herself or others. She does not require inpatient mental health care. Recommend follow-up with her PCP for recheck Lab Data Labs: Lab Results 12/02/24 12/02/24 Range/Units 09:11 09:25 WBC 3.81 L (4.50-11.00) K/uL RBC 4.16 (4.00-5.20) m/uL Hgb 13.2 (12.0-16.0) gm/dL Hct 38.7 (33.0-51.0) % MCV 93 (80-100) fL MCH 32 (26-34) pg MCHC 34 (32-36) gm/dL RDW Coeff of Ariana 15.7 H (11.5-15.5) % Plt Count 319 (140-440) K/uL Neut % (Auto) 53.8 (42.0-72.0) % Lymph % (Auto) 36.0 (20-44) % [place] % (Auto) 8.9 (0.0-11.0) % Eos % (Auto) 0.3 (0.0-7.0) % Baso % (Auto) 0.5 (0.0-3.0) % Neut # (Auto) 2.00 (1.7-7.0) K/uL Lymph # (Auto) 1.40 (0.90-2.90) K/uL [place] # (Auto) 0.30 (0.00-0.90) K/UL Eos # (Auto) 0.00 (0.00-0.50) K/uL Baso # (Auto) 0.00 (0.00-0.30) K/uL Abs Immat Gran (auto) 0.00 (0.00-0.30) K/uL Imm/Tot Granulo (auto) 0.5 % Sodium 131 L (135-149) mmol/L Potassium 4.4 (3.6-5.1) mmol/L Chloride 95 L (96-114) mmol/L Carbon Dioxide 25 (20-32) mmol/L Anion Gap 11 (7-15) mEq/L BUN 12 (7-30) mg/dL Creatinine 0.5 (0.5-1.5) mg/dL Estimated Creat Clear 53.21 Estimated GFR 105 ml/min Glucose 103 (60-115) mg/dL Calcium 8.9 (8.4-10.6) mg/dL TSH 0.851 (0.270-4.200) uIU/mL Urine Color Yellow (Yellow) Urine Appearance Clear (Clear) Urine pH 6.0 (5.0-8.5) Ur Specific Pope <= 1.005 (1.000-1.030) Urine Protein Negative (Negative) Urine Glucose (UA) Negative (Negative) Urine Ketones Negative (Negative) Urine Blood Negative (Negative) Urine Nitrite Negative (Negative) Urine Bilirubin Negative (Negative) Urine Urobilinogen 0.2 (0.2-1.0) Ur Leukocyte Esterase Negative (Negative) Urine RBC 0-2 (0-2) Urine WBC 0-2 (0-5) Ur Squamous Epith Cells None (None-Few) Urine Bacteria None (None) SARS-CoV-2 (PCR) Negative SARS-CoV-2 (Negative) Influenza Type A (PCR) Negative PCR FLU A (Negative) Influenza Type B (PCR) Negative PCR FLU B (Negative) RSV (PCR) Negative PCR RSV (Negative) Group A Strep DNA NOT DETECTED (Not Detectd) POC Troponin I 0.00 L (0.01-0.04) ng/ml Imaging Data CT scan - head: Attestation: I have reviewed the pertinent imaging results. My impression: No acute finding-per Dr. Rojas Radiologist's impression: IMPRESSION: No acute intracranial abnormality. CT angio head and neck: Attestation: I have reviewed the pertinent imaging results. Radiologist's impression: Preliminary Report: . CTA head: No large vessel occlusion. . CTA neck: No high-grade carotid artery stenosis, occlusion or dissection. Bilateral vertebral arteries are patent. ECG Data Attestation: I personally reviewed and interpreted this ECG as follows: Interpretation: Normal sinus rhythm Rate: 74 OR: 170 QRS axis: Normal axis. No pathologic Q-waves ST segment/T wave: No ST segment elevation or depression QTc: 426 Discharge Plan Discharge Clinical Impression: Headache, Hypertension, Anxiety Patient Disposition: Home, Self-Care Condition: Stable Instructions: Acute Headache (DC), Hypertension (ED) Additional Instructions: As we discussed, so far your workup looks good. your blood pressure is elevated today but actually came down here while you are in the ER. I do not see any signs that the blood pressure is causing a stroke, heart attack, kidney failure, or other immediate damage to your body. Her please restart on your lisinopril for your blood pressure. Measure blood pressure once every day at home and keep a record. Follow-up with your regular doctor within the next 2-4 days to have a checkup and repeat blood pressure check. If her blood pressure is persistently elevated, your doctor may half to increase your dose of blood pressure medication to help keep her your blood pressure down. So far the workup for headache looks good. No signs of bleeding in your brain, tumors, stroke, pressure in her brain. The blood vessels feeding the blood here brain look good. No sign that they are blocked. Use the prescription medication at home to help treat your headache. Your headache should get better in the next 1-2 days. If you have worsening symptoms such as severe increase in headache, new visual problems, nausea or vomiting, confusion, please return to the ER right away to be rechecked Prescriptions: New hydrocodone-acetaminophen 5-325 mg tablet 1 tab PO Q6H PRN (Reason: pain) Qty: 7 0RF ondansetron 4 mg tablet,disintegrating 4 mg PO Q8H PRN (Reason: nausea and vomiting) Qty: 10 0RF No Action ibuprofen [Advil] 200 mg tablet 400 mg PO Q6-8H PRN sennosides [Senna Lax] 8.6 mg Tablet 17.2 mg PO BID PRN (Reason: constipation) Qty: 100 0RF acetaminophen 500 mg capsule 500 - 1,000 mg PO Q6H MDD 4000mg per day PRN (Reason: pain) Qty: 100 0RF lisinopril 10 mg tablet 10 mg PO QDAY cholecalciferol (vitamin D3) 25 mcg (1,000 unit) capsule 25 mcg PO QDAY mecobalamin (vitamin B12) [B12 Active] 1,000 mcg tablet,chewable 1,000 mcg PO QDAY multivitamin Tablet 1 tab PO QDAY Follow Up/Referrals: Karla Mcelroy DO [Primary Care Provider] - Stand Alone Forms: MyHealth Info Instructions
[2024-12-02 09:34] LABS: Appearance Urine Clear (Clear); Bilirubin Urine Negative (Negative); Blood Urine Negative (Negative); Color Urine Yellow (Yellow); Glucose Urine Negative (Negative); Ketones Urine Negative (Negative); Leukocyte Esterase Urine Negative (Negative); Nitrite Urine Negative (Negative); Protein Urine Negative (Negative); Specific Gravity Urine <= 1.005 (1.000-1.030); Urobilinogen Urine 0.2 (0.2-1.0)
[2024-12-02 09:35] LABS: Basophils Percent Auto 0.5 % (0.0-3.0); Eosinophils Percent Auto 0.3 % (0.0-7.0); Hematocrit 38.7 % (33.0-51.0); Hemoglobin* 13.2 gm/dL (12.0-16.0); Immature Granulocytes Pct Auto 0.5 %; Mean Corpuscular HGB Conc 34 gm/dL (32-36); Mean Corpuscular Hemoglobin 32 pg (26-34); Mean Corpuscular Volume 93 fL (80-100); Monocytes Percent Auto 8.9 % (0.0-11.0); Neutrophils Percent Auto 53.8 % (42.0-72.0); Platelet Count* 319 K/uL (140-440); RDW Coefficient of Variation % 15.7 % (11.5-15.5); Red Blood Count 4.16 m/uL (4.00-5.20); White Blood Count* 3.81 K/uL (4.50-11.00)
[2024-12-02 09:36] LABS: Slide Review Reflex No
[2024-12-02] MEDS: 0.9 % SODIUM CHLORIDE 1000 ml 1,000 ML IV (09:36)
[2024-12-02] MEDS: KETOROLAC 15 MG/ML inj IVP (09:37)
[2024-12-02] MEDS: METOCLOPRAMIDE HCL 5 MG/ML INJ 10 MG IVP (09:39)
[2024-12-02] MEDS: diphenhydrAMINE 50 MG/ML inj 25 MG IVP (09:41)
--- OUTSIDE RECORDS SUMMARY | 2024-12-02 09:42 | XMS_ITS | Clinical Summary ---
Author Organization [employer] [facility] [employer] Address [place], [place] [address] Care Team Providers Care Photographer'S Model Name Role Phone Karla Mcelroy DO Primary Care Provider Allergies No known active allergies Medications omega-3 [...] Department Care Team Description 11/26/2024 2:50 PM FIGHTING VEHICLE INFANTRYMAN Office Visit [facility] [address] [place] [address] Soledad Pineda, Headache (headaches ongoing for about 2 weeks, not sleeping well, Tylenol has not been helpful. ) 11/26/2024 Travel 11/26/2024 Nurse Triage [facility] [address] [place] [address] Karla Mcelroy, Headache 11/17/2024 Nurse Triage [facility] [address] [place] [address] Karla Mcelroy DO Headache 11/13/2024 Nurse Triage [facility] [address] [place] [address] Karla Mcelroy, Headache 09/22/2024 Orders Only [facility] Scanner 1 scan: (1-Ord) RUBI CHEN KNEE RT 2V, 09/22/2024 09/14/2024 Orders Only [address] [address] Karla Mcelroy DO 1 scan: (1-Ord) [facility]D-EKG-09/09/24 09/09/2024 9:50 AM FIGHTING VEHICLE INFANTRYMAN Office Visit [facility] [address] [place] [address] Karla Mcelroy DO Preoperative Exam (total right knee 09/22/24) 09/09/2024 Travel 09/03/2024 Telephone [facility] [address] [place] [address] Karla Mcelroy DO Letter from Last 3 [...] on file Legal Sex Female 5:24 AM FIGHTING VEHICLE INFANTRYMAN Gender Identity Not on file Sexual Orientation Not on file 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 [employer] Not on file Not on file Not [...] Comments Blood Pressure 158/98 11/26/2024 2:51 PM FIGHTING VEHICLE INFANTRYMAN Pulse 70 11/26/2024 2:51 PM FIGHTING VEHICLE INFANTRYMAN Temperature 36.9 C (98.5 F) 11/26/2024 2:51 PM FIGHTING VEHICLE INFANTRYMAN Respiratory Rate 16 03/25/2023 2:52 PM CDT Oxygen Saturation 99% 11/26/2024 2:51 PM FIGHTING VEHICLE INFANTRYMAN Inhaled Oxygen Concentration - - Weight 83.1 kg (183 lb 3.2 oz) 09/09/2024 9:52 A M FIGHTING VEHICLE INFANTRYMAN Height 165.5 cm (5' 5.16) 09/09/2024 9:52 AM CS T Body Mass Index 30.34 09/09/2024 9:52 AM FIGHTING VEHICLE INFANTRYMAN Plan of Treatment Health Maintenance Due Date [...] Diagnosis Comments SCAN-RADIOLOGY REPORT 09/22/2024 12:00 AM FIGHTING VEHICLE INFANTRYMAN EKG 12 LEAD Routine 09/14/2024 8:34 AM FIGHTING VEHICLE INFANTRYMAN Pre-op exam AR READING EKG - NO CHARGE, COMP ONLY Routine 09/14/2024 8:33 AM FIGHTING VEHICLE INFANTRYMAN Pre-op exam CBC WITH AUTO DIFFERENTIAL Routine 09/09/2024 10:58 AM FIGHTING VEHICLE INFANTRYMAN Pre-op exam UA W/ SEDIMENT EXAM REFLEXED PER CRITERIA Routine 09/09/2024 10:58 AM FIGHTING VEHICLE INFANTRYMAN Pre-op exam XR MAMMO BILAT SCREENING Routine 11/16/2020 10:12 AM FIGHTING VEHICLE INFANTRYMAN Visit for screening mammogram LIPID PANEL W REFLEX MEASURED LDL Routine 11/16/2020 10:02 AM FIGHTING VEHICLE INFANTRYMAN Lipid screening ANTI HCV Routine 06/18/2014 9:31 AM CDT Need for hepatitis C screening test from Last 3 Months or Most Recently Relevant to Health Maintenance Results * SCAN-RADIOLOGY REPORT (09/22/2024 12:00 AM FIGHTING VEHICLE INFANTRYMAN) Anatomical Region Laterality Modality Other us Scanner OTHER Final Result * EKG 12 LEAD (09/14/2024 8:34 AM FIGHTING VEHICLE INFANTRYMAN) us Karla Vasquez Detert DO EKG ORD Final Resul t * AR READING EKG - NO CHARGE, COMP ONLY (09/14/2024 8:33 AM FIGHTING VEHICLE INFANTRYMAN) us Karla Vasquez Detert DO PB - PROVIDER READINGS Ana l Result * UA W/ SEDIMENT EXAM REFLEXED PER CRITERIA (09/09/2024 10:58 AM FIGHTING VEHICLE INFANTRYMAN) COLOR YELLOW YELLOW [facility] APPEARANCE CLEAR CLEAR [facility] SPECIFIC GRAVITY 1.007 1.001 - 1.035 [facility] PH 6.0 5.0 - 8.0 [facility] [...] URINE SPECIMEN / Unknown 09/09/2024 10:58 AM FIGHTING VEHICLE INFANTRYMAN 09/09/2024 10:58 AM FIGHTING VEHICLE INFANTRYMAN us Karla Teageut DO URINE Final Resul t [facility] [address] [place] [address], [facility] [address] [place] [address] * (ABNORMAL) CBC AND DIFFERENTIAL (09/09/2024 10:58 AM FIGHTING VEHICLE INFANTRYMAN) WHITE BLOOD CELL COUNT 5.3 3.8 - [...] BLOOD SPECIMEN / Unknown 09/09/2024 10:58 AM FIGHTING VEHICLE INFANTRYMAN 09/09/2024 10:58 AM FIGHTING VEHICLE INFANTRYMAN us Karla Teaguet DO HEMATOLOGY Final Resul t [facility] [address] [place] [address], [place] [phone] [facility] [address] [place] [address] * XR MAMMO BILAT SCREENING (11/16/2020 10:12 AM FIGHTING VEHICLE INFANTRYMAN) Anatomical Region Laterality Modality BREASTS, Breast Left, Breast Right Bilateral Mammography Impressions 11/16/2020 1:54 PM FIGHTING VEHICLE INFANTRYMAN There is no radiographic evidence for malignancy. Recommend annual mammograms. A lay language report of this examination will be provided to the patient. MAMMOGRAM ASSESSMENT: ACR 2 Benign Narrative 11/16/2020 1:54 PM FIGHTING VEHICLE INFANTRYMAN XR MAMMO BILAT SCREENING [[id number]] CLINICAL HISTORY: This is an asymptomatic 60 y.o. patient. INDICATION FOR EXAM: Mammogram Screening. TECHNIQUE: CC & MLO views were obtained. This digital study was evaluated with the assistance of Computer-Aided Detection. COMPARISON FILMS: Yes 10/27/18 [facility] 09/20/17 [facility] FINDINGS: The breasts are heterogeneously dense, which may obscure small masses. No suspicious masses or microcalcifications. Benign appearing calcifications within left breast and Intramammary lymph node within right breast. Karla Vasquez Detert DO MAMMO Final Resul t * (ABNORMAL) LIPID PANEL W REFLEX MEASURED LDL (11/16/2020 10:02 AM FIGHTING VEHICLE INFANTRYMAN) CHOLESTEROL,TOTAL 218(H) 100 - 199 mg/dL 11/16/2020 6:48 PM FIGHTING VEHICLE INFANTRYMAN [facility] TRIGLYCERIDES 69 <150 mg/dL 11/16/2020 6:48 PM FIGHTING VEHICLE INFANTRYMAN [facility] HDL CHOLESTEROL 64 >40 mg/dL 6:48 PM FIGHTING VEHICLE INFANTRYMAN [facility] NON-HDL CHOLESTEROL 154(H) <145 mg/dl 11/16/2020 6:48 PM FIGHTING VEHICLE INFANTRYMAN [facility] CHOL/HDL RATIO 3.41 <4.50 11/16/2020 6:48 PM [facility] LDL CHOLESTEROL 140(H) <=130 mg/dL 11/16/2020 6:48 PM [facility] PROVIDER ORDERED STATUS RANDOM 11/16/2020 6:48 PM [facility] Blood BLOOD SPECIMEN / Unknown Venipuncture / Unknown 11/16/2020 10:02 AM FIGHTING VEHICLE INFANTRYMAN 11/16/2020 10:02 AM FIGHTING VEHICLE INFANTRYMAN us Karla Teaguet DO CHEMISTRY Final Resul t [facility] [address] [place] [address], * ANTI HCV [[id number]] (06/18/2014 9:31 AM CDT) HEPATITIS C ANTIBODY Non-Reacti ve Non-Reacti ve 06/18/2014 5:19 PM CDT [facility] Blood specimen (specimen) BLOOD SPECIMEN / Unknown Venipuncture / Unknown 06/18/2014 9:31 AM CDT 06/18/2014 9:31 AM CDT Narrative [facility] - 06/18/2014 5:19 PM CDT Antibodies to HCV not detected; does not exclude the possibility of exposure to HCV. Melodie Alegre SEND OUTS Final R esult [facility] [address] [place] [address], from Last 3 Months or Most Recently Relevant to Health Maintenance Insurance [place] Care Teams Photographer'S Model Relationship Specialty Start Date End Date Karla Mcelroy DO [address] [place] [address] PCP - General Family Practice 09/21/15
[2024-12-02 09:45] LABS: RBC Urine 0-2 (0-2); WBC Urine 0-2 (0-5)
[2024-12-02 09:49] LABS: Chloride* 95 mmol/L (96-114); Potassium* 4.4 mmol/L (3.6-5.1); Sodium* 131 mmol/L (135-149)
[2024-12-02 09:51] LABS: Creatinine* 0.5 mg/dL (0.5-1.5); Est. Creatinine Clearance* 53.21; Estimated Glomerular Filt Rate 105 ml/min
[2024-12-02 09:52] LABS: Anion Gap 11 mEq/L (7-15); Blood Urea Nitrogen* 12 mg/dL (7-30); Calcium* 8.9 mg/dL (8.4-10.6); Carbon Dioxide* 25 mmol/L (20-32); Glucose* 103 mg/dL (60-115)
[2024-12-02 10:00] LABS: Strep A DNA Probe* NOT DETECTED (Not Detectd)
[2024-12-02 10:13] LABS: PCR FLU A Negative PCR FLU A (Negative); PCR FLU B Negative PCR FLU B (Negative); PCR RSV Negative PCR RSV (Negative); SARS PCR* Negative SARS-CoV-2 (Negative)
[2024-12-02 10:40] LABS: TSH With Reflex to FT4* 0.851 uIU/mL (0.270-4.200)
[2024-12-02] MEDS: droperidoL 2.5 MG/ML inj IV (10:55)
[2024-12-02] MEDS: HYDROCODONE-ACETAMIN 5-325 MG 1 TAB PO (11:45)
== END 2024-12-02 12:50 | disposition home or self-care (01) ==
PROVIDERS: Emergency Provider Emergency Medicine; PCP Family Medicine
DX: R51.9 Headache, unspecified (principal); I10 Essential (primary) hypertension; F41.9 Anxiety disorder, unspecified
CPT/HCPCS: 36415; 70450; 70496; 70498; 80048; 81001; 84443; 84484; 85025; 87631; 87651; 96374; 96375; 99284; 99285; A9270; J1200; J1790; J1885; J2765; J7030; Q9967

== ENCOUNTER 2024-12-25 07:30 | Outpatient (RCR) | payer BC, OTHER, SELFPAY ==
--- NOTE | 2024-12-10 15:40 | PT.OPDNX ---
PT [facility] Daily Note PT [facility] Outpatient Daily Note Start: 09/11/24 08:02 Freq: Status: Active Protocol: Document 12/10/24 13:13 HLA (Rec: 12/10/24 15:39 HLA [id number]) E-signed By Leni Walton, PT, DPT PT OP Daily Progress Note Visit Information Note Type Daily Note,Recert/Progress Note Visit Number 13 Physician Authorized Visits Eval and treat Cancellation Note Cancelled Documentation Pt has cx PT since 11/04/24 due to illness from COVID Insurance Information Insurance Name Health XDx Medical Diagnosis Right knee OA Pre and post-operative R TKA DOS: 09/22/24 SDS Treating Diagnosis Right knee pain, limited knee ROM, LE weakness, antalgic gait Imaging Report Information Right knee end-stage lateral and patellofemoral compartment osteoarthritis with significant valgus malalignment History of right knee arthroscopic PLM, patellofemoral condylar debridement (10/25/2015, Dr. Quarles) Referring MD Kapadia Subjective Preferred Name Minerva Subjective Pt reports severe BRADFORD and sx from COVID, has missed > 1 month of PT. 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 Feels weak, deconditioned, feels like her balance is 'off'. Date of Last Physician Visit 07/16/24 Date of Surgery (If applicable) 09/22/24 Precautions Treatment Precautions/Contraindications s/p COVID, pt missed 4 weeks of PT. Weight Bearing Status Weight Bear as Tolerated Home Exercise Home Exercise Comments Access Code: [email or web address] URL: [email or web address] Date: 12/10/2024 Prepared by: Leni Walton Exercises - Supine Figure 4 Piriformis Stretch - 1 x daily - 7 x weekly - 1 sets - 3-5 reps - 20 hold - Supine Piriformis Stretch with Foot on Ground (Mirrored) - 1 x daily - 7 x weekly - 1 sets - 3-5 reps - 20 hold - Seated Piriformis Stretch ( Mirrored) - 1 x daily - 7 x weekly - 1 sets - 3-5 reps - Standing March with Counter Support - 1 x daily - 7 x weekly - 1 sets - 20 reps - 3 hold - Squat with Counter Support - 1 x daily - 7 x weekly - 1 sets - 10 reps - 3 hold - Single Leg Stance with Support (Mirrored) - 1 x daily - 7 x weekly - 1 sets - 5 reps - 15 hold - Tandem Stance with Support - 1 x daily - 7 x weekly - 1 sets - 5 reps - 15 hold - Standing Hip Abduction with Bent Knee (Mirrored) - 1 x daily - 7 x weekly - 1 sets - 10 reps Objective Other/Pertinent Objective R knee AAROM 6-118 degrees flex by end of session w/overpressure Strength L LE 5-/5, R 4+/5 knee otherwise 5-/5 Functional Test Performed & Score LEFS: 38/80 Patient Instructed in Risks/Benefits Yes Therapeutic Exercise Therapeutic Exercise Minutes (minutes) 31 Therapeutic Exercise: To Restore nu step level 4, x 5 min Functional Status recumbent bike level 2, x 5 min treadmill 2 min 1.0 mph 2 UE support Laps in gym 200 feet x 5 reps, vc pacing, PLB. Pt with HR 80 -108 bpm after amb, Sa02 97-98 %. Discussed progression of gt at home. standing HF, abd, squats, heel toe raises, bent knee abd at railing x 15 reps, 2 sets Seated knee flex/ext x 20 supine HS x 15 supine piriformis stretch, 4 way stretch 20 sec x 3 R LE Seated piriformis stretch 20 x 3 sec Manual Therapy Techniques Manual Therapy Techniques manual stretch R knee supine, manual techniques contract/ relax SI on R. Gait & Stair Training Gait & Stair Training Comments treadmill 2 min 1.0 mph 2 UE support Laps in gym 200 feet x 5 reps, vc pacing, PLB. Pt with HR 80 -108 bpm after amb, Sa02 97-98 %. Discussed progression of gt at home. Neuromuscular Re-Ed Neuromuscular Reeducation Minutes ( 15 minutes) Neuromuscular Reeducation Comments SLS needs 1 UE support 15 sec x 3 tandem stance 1 UE support 15 sec c 5 Romberg stance sba x 10 Romberg stance eyes closed sba x 10 Romberg stance head turns x 10 amb high knees 30 feet x 2 sidestepping sba 30 feet x 2- held monster walks, pt too tired. Treatment Minutes Timed Code Treatment Minutes 46 Total Treatment Time 46 Billing Units Neuromuscular Reeducation Units 1 Therapeutic Exercise Units 2 Assessment/Impression Assessment/Impression Pt is a 64 year old female s/p R TKA on 09/22/24. Pt was making good progress in PT, but became ill with COVID and has not attended PT since 11/04. She returns today, hopes to be stronger, move better and return to work. Pt reports fatigue, weakness and imbalance. Testing shows general weakness, R knee 6-118 degrees flex with overpressure and therapist stretch. Some difficulty with SLS and tandem stance showing balance deficits. Pt amb on treadmill 2 min 1.0 mph 2 UE support Laps in gym 200 feet x 5 reps, vc pacing, PLB. Pt with HR 80 -108 bpm after amb, Sa02 97-98 %. Discussed progression of gt at home.Worked today with her on end range flex/ext,stamina /strength,pacing, balance, increasing amb tolerance for eventual return to work as [employer] automatic vulcanizing operator. Due to weakness, impaired balance, impaired ambulation, she will benefit from PT for TKA ex, strengthening, ROM, balance training, gt training, safety, fall prevention and home ex program instruction with goal to return to community based mobility at low fall risk. 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 Plan weekly sessions x 3 more weeks. Plan of Care Physical Therapy Goals Within 10-12 weeks: 1. Pt will have knee AROM 0- 120 degrees for transfers, ADLs, and stairs independence. 2. Pt will amb 20 min with se cane or no device as indicated, safely and independently for community and household ambulation. 3. Pt will be independent in home ex program for long term care social worker pain management and to promote independence and to decrease fall risk. 4. Pt will ascend/descend 13 stairs with railing independently for community mobility. Daily Plan of Care Continue per POC
== END 2024-12-25 08:53 | disposition home or self-care (01) ==
PROVIDERS: PCP Family Medicine; Visit Provider Orthopaedic Surgery
DX: M17.11 Unilateral primary osteoarthritis, right knee (principal); Z96.651 Presence of right artificial knee joint; M25.561 Pain in right knee; Z74.09 Other reduced mobility; R53.1 Weakness; R26.9 Unspecified abnormalities of gait and mobility; Z51.89 Encounter for other specified aftercare
CPT/HCPCS: 97110; 97112; 97116; 97140; 97161; 97164; 97535

== ENCOUNTER 2025-03-18 11:15 | Outpatient (RCR) | payer BC, SELFPAY | END 2025-04-16 08:31 | disposition home or self-care (01) | PROVIDERS: PCP Family Medicine; Visit Provider Family Medicine | DX: M54.50 Low back pain, unspecified (principal); M54.6 Pain in thoracic spine; Z51.89 Encounter for other specified aftercare | CPT/HCPCS: 97110; 97140; 97161 ==